=== PATIENT | male | born 1970 ===

== ENCOUNTER 2022-07-17 17:21 | Outpatient (CLI) | payer BC, SELFPAY ==
[2022-07-17 22:26] LABS: Albumin* 4.5 g/dL (3.3-5.0); Chloride* 107 mmol/L (96-114); Sodium* 140 mmol/L (135-149)
[2022-07-17 22:27] LABS: Potassium* 4.8 mmol/L (3.6-5.1)
[2022-07-17 22:29] LABS: Alkaline Phosphatase* 83 U/L (40-150); Aspartate Amino Transferase* 27 U/L (12-35); Bilirubin Total* 0.8 mg/dL (0.1-1.5); Blood Urea Nitrogen* 20 mg/dL (7-30); Carbon Dioxide* 26 mmol/L (20-32); Estimated Glomerular Filt Rate 89 ml/min; Glucose* 85 mg/dL (60-115); Total Protein* 7.2 g/dL (6.0-8.3)
[2022-07-17 22:30] LABS: Alanine Aminotransferase* 22 U/L (4-50); Calcium* 9.4 mg/dL (8.4-10.6)
[2022-07-17 23:00] LABS: PSA Screen* 2.24 ng/mL (0.10-4.00)
[2022-07-17 23:05] LABS: Ferritin* 50.1 ng/mL (17.9-464.0)
[2022-07-17 23:45] LABS: Chlamydia DNA Amplified* NOT DETECTED (No Detected); GC DNA Amplified* NOT DETECTED (No Detected)
[2022-07-19 21:58] LABS: Testosterone, Adult Male 874 ng/dL (300-890)
[2022-07-20 06:56] LABS: Rapid Plasma Reagin (RPR) Non Reactive (Non Reactive)
== END 2022-07-17 17:22 | disposition home or self-care (01) ==
PROVIDERS: PCP Emergency Medicine; Visit Provider Emergency Medicine
DX: Z00.00 Encounter for general adult medical examination without abnormal findings (principal); N52.9 Male erectile dysfunction, unspecified; Z13.6 Encounter for screening for cardiovascular disorders; Z12.5 Encounter for screening for malignant neoplasm of prostate; Z11.3 Encounter for screening for infections with a predominantly sexual mode of transmission; Z13.1 Encounter for screening for diabetes mellitus
CPT/HCPCS: 80053; 82728; 84153; 84403; 84443; 86480; 86592; 87491; 87591

== ENCOUNTER 2024-04-08 13:58 | Outpatient (CLI) | payer BC, SELFPAY | END 2024-04-08 13:59 | disposition home or self-care (01) | PROVIDERS: PCP Emergency Medicine; Visit Provider Emergency Medicine | DX: Z00.00 Encounter for general adult medical examination without abnormal findings (principal); Z13.6 Encounter for screening for cardiovascular disorders; Z11.3 Encounter for screening for infections with a predominantly sexual mode of transmission; Z13.1 Encounter for screening for diabetes mellitus; Z12.5 Encounter for screening for malignant neoplasm of prostate; Z11.59 Encounter for screening for other viral diseases | CPT/HCPCS: 80048; 80061; 86592; 86703; 86803; 87340; G0103 ==

== ENCOUNTER 2025-03-04 13:19 | Outpatient (CLI) | payer BC, SELFPAY | END 2025-03-04 13:20 | disposition home or self-care (01) | PROVIDERS: PCP Emergency Medicine; Visit Provider Emergency Medicine | DX: Z00.00 Encounter for general adult medical examination without abnormal findings (principal); N52.9 Male erectile dysfunction, unspecified; R30.0 Dysuria; Z11.3 Encounter for screening for infections with a predominantly sexual mode of transmission; Z12.5 Encounter for screening for malignant neoplasm of prostate | CPT/HCPCS: 80053; 87086; 87491; 87591; G0103 ==

== ENCOUNTER 2025-03-18 09:19 | Outpatient (CLI) | payer BC, SELFPAY | END 2025-03-18 09:20 | disposition home or self-care (01) | PROVIDERS: PCP Emergency Medicine; Visit Provider Nurse Practitioner Family | DX: Z11.3 Encounter for screening for infections with a predominantly sexual mode of transmission (principal); Z11.4 Encounter for screening for human immunodeficiency virus [HIV]; Z11.51 Encounter for screening for human papillomavirus (HPV) | CPT/HCPCS: 86592; 86703; 86706; 86803; 87340; 87529 ==

== ENCOUNTER 2025-06-18 09:58 | Outpatient (CLI) | payer BC, SELFPAY | END 2025-06-18 09:59 | disposition home or self-care (01) | LOC: FRMREF 09:59 | PROVIDERS: PCP Nurse Practitioner Family; Visit Provider Nurse Practitioner Family | DX: R53.83 Other fatigue (principal); A56.01 Chlamydial cystitis and urethritis | CPT/HCPCS: 84270; 84402; 84403; 87491; 87591; G0103 ==